=== PATIENT | male | born 1995 | race Caucasian/White ===

== ENCOUNTER 2019-12-15 15:35 | Outpatient (CLI) | payer OTHER ==
--- NOTE | 2019-12-15 16:11 | ULT ---
EXAM: BILATERAL RENAL ULTRASOUND COMPLETE: 12/15/19 HISTORY: Acute kidney failure. FINDINGS: Right kidney measures 10.6 x 5.1 x 4.7 cm. Left kidney measures 11.1 x 5.6 x 4.7 cm. No evidence for renal hydronephrosis. The urinary bladder appears unremarkable. No solid or cystic re nal mass. IMPRESSION: Unremarkable bilateral ultrasound. No renal hydronephrosis or other acute process. POS: RRE
== END 2019-12-15 15:36 | disposition home or self-care (01) ==
LOC: BICULT 15:35
PROVIDERS: ATTEND Internal Medicine Nephrology
DX: N17.9 Acute kidney failure, unspecified (principal)
CPT/HCPCS: 76770

== ENCOUNTER 2023-01-14 10:06 | Outpatient (CLI) | payer OTHER ==
[2023-01-14 11:15] LABS: Bilirubin Neg (Negative); Blood, Urine Negative (Negative); Clarity Clear (Clear); Glucose, Urine (Dipstick) Normal (Negative); Ketone, Urine Negative (Negative); Leukocyte Negative (Negative); Nitrite Negative (Negative); Protein, Urine (Dipstick) Negative (Neg-Trace); Urobilinogen Normal mg/dL (Less than 2); pH, Urine 6.5 (5.0-9.0)
[2023-01-14 11:23] LABS: Hematocrit 43.4 % (38.8-50.0); Hemoglobin 14.2 g/dL (13.5-17.5); Mean Corpuscular HGB CONC 32.7 g/dL (32.0-36.0); Mean Corpuscular Volume 88.6 fl (81.2-95.1); Mean Platelet Volume 10.8 fl (7.4-10.4); Platelet Count 220 10x3/uL (150-450); RBC Distribution Width 12.3 % (11.5-14.5); White Blood Cell (WBC) Count 6.1 10x3/uL (3.5-10.5)
[2023-01-14 11:27] LABS: INR-International Normal Ratio 0.9; PTT 26.9 sec (22.0-33.0); Prothrombin Time 10.2 sec (9.5-12.1)
[2023-01-14 11:29] LABS: Anion Gap 14 mmol/L (10-20); BUN (Urea Nitrogen) 10 mg/dL (8.9-20.6); Calc. Creatinine Clearance 0 mL/min (70-130); Calcium 9.8 mg/dL (7.8-10.44); Carbon Dioxide 27 mmol/L (22-29); Chloride 105 mmol/L (98-107); Estimated GFR 114; Glucose 81 mg/dL (70-105); Potassium 3.9 mmol/L (3.5-5.1); Sodium 142 mmol/L (136-145)
[2023-01-14 11:39] LABS: Bacteria/HPF None Seen HPF (None Seen); RBC/HPF None Seen HPF (0-3); Squamous Epithelial None Seen HPF (0-3); WBC/HPF None Seen HPF (0-3)
== END 2023-01-14 10:07 | disposition home or self-care (01) ==
LOC: LABBT 10:06
PROVIDERS: ATTEND Urology
DX: Z01.812 Encounter for preprocedural laboratory examination (principal); N50.89 Other specified disorders of the male genital organs
CPT/HCPCS: 80048; 81001; 85027; 85610; 85730; 87086

== ENCOUNTER 2023-01-16 08:45 | Outpatient (CLI) | payer OTHER | END 2023-01-16 08:46 | disposition home or self-care (01) | LOC: PET 08:45 | PROVIDERS: ATTEND Internal Medicine Hematology & Oncology | DX: C62.11 Malignant neoplasm of descended right testis (principal); C77.2 Secondary and unspecified malignant neoplasm of intra-abdominal lymph nodes; R93.89 Abnormal findings on diagnostic imaging of other specified body structures | CPT/HCPCS: 78815; A9552 ==

== ENCOUNTER 2023-01-24 09:30 | Day surgery (SDC) | payer OTHER ==
[2023-01-14 10:25] VITALS: BMI 25.1
[2023-01-24] MEDS ORDERED: fentaNYL 50 mcg/mL 1 mL Vial ONE ×2 (12:32→15:06)
[2023-01-24] MEDS ORDERED: SUGAMMADEX SODIUM 200 MG/2 ML VIAL ONE (12:32)
[2023-01-24] MEDS ORDERED: Bupivacaine 0.25% HCL 30 ML VIAL ONE (12:44)
[2023-01-24] MEDS ORDERED: Sodium Chloride 0.9% 100 ML ONE (12:56)
[2023-01-24] MEDS ORDERED: CEFAZOLIN 1 GM VIAL ONE (12:56)
[2023-01-24] MEDS ORDERED: Ondansetron PF 4 MG/2 ML Vial ONE (13:35)
[2023-01-24] MEDS ORDERED: Ketorolac Tromethamine 30 MG/ML VIAL ONE (13:35)
[2023-01-24] MEDS ORDERED: Lidocaine 1% PF 5 ML VIAL ONE (13:35)
[2023-01-24] MEDS ORDERED: PROPOFOL 200 MG/20 ML VIAL ONE (13:35)
[2023-01-24] MEDS ORDERED: HYDROcodone/Acetaminophen 5/325 mg Tablet ONE (15:34)
== END 2023-01-24 16:20 | disposition home or self-care (01) ==
LOC: SDC 09:30
PROVIDERS: ATTEND Urology
PROC: 0VB90ZZ Excision of Right Testis, Open Approach (ICD-10-PCS; principal; 2023-01-24)
DX: C62.91 Malignant neoplasm of right testis, unspecified whether descended or undescended (principal)
CPT/HCPCS: 88309; 88341; 88342; J0690; J1885; J2405; J2704; J3010; J3490; S0020

== ENCOUNTER 2023-03-01 11:37 | Day surgery (SDC) | payer OTHER ==
[2023-02-28 14:49] VITALS: BMI 24.3
[2023-03-01] MEDS ORDERED: Bupivacaine 0.25% HCL 30 ML VIAL ONE ×2 (12:29→12:52)
[2023-03-01] MEDS ORDERED: EPINEPHrine 1 MG/ML AMP ONE (12:29)
[2023-03-01] MEDS ORDERED: Lidocaine 2% PF 5 ML VIAL ONE (12:29)
[2023-03-01] MEDS ORDERED: Midazolam HCl 2 mg/2 ml Vial ONE (12:54)
[2023-03-01] MEDS ORDERED: fentaNYL 50 mcg/mL 1 mL Vial ONE (12:54)
[2023-03-01] MEDS ORDERED: Famotidine/PF 20 mg/2ml Vial ONE (12:54)
[2023-03-01] MEDS ORDERED: CEFAZOLIN 2 GM VIAL ONE (13:11)
[2023-03-01] MEDS ORDERED: Sodium Chloride 0.9% 100 ML ONE (13:11)
[2023-03-01] MEDS ORDERED: Ondansetron PF 4 MG/2 ML Vial ONE (13:20)
[2023-03-01] MEDS ORDERED: PROPOFOL 200 MG/20 ML VIAL ONE (13:20)
[2023-03-01] MEDS ORDERED: Lidocaine 1% PF 5 ML VIAL ONE (13:20)
== END 2023-03-01 14:46 | disposition home or self-care (01) ==
LOC: SDC 11:37
PROVIDERS: ATTEND Surgery
PROC: 0JH63WZ Insertion of Totally Implantable Vascular Access Device into Chest Subcutaneous Tissue and Fascia, Percutaneous Approach (ICD-10-PCS; principal; 2023-03-01)
DX: C62.11 Malignant neoplasm of descended right testis (principal)
CPT/HCPCS: 71045; C1788; J0171; J1642; J2001; J2250; J2405; J2704; J3010; J3490; S0020; S0028

== ENCOUNTER 2023-03-18 15:35 | Outpatient (CLI) | payer OTHER | END 2023-03-18 15:36 | disposition home or self-care (01) | LOC: BICRAD 15:35 | PROVIDERS: ATTEND Internal Medicine Hematology & Oncology | DX: C62.11 Malignant neoplasm of descended right testis (principal) | CPT/HCPCS: 71046 ==

== ENCOUNTER 2023-06-12 09:04 | Outpatient (CLI) | payer OTHER ==
[2023-06-12] MEDS ORDERED: Iopamidol-370 76% 500 ML MDV (1 ML CHARGE) ONE (13:23)
== END 2023-06-12 09:05 | disposition home or self-care (01) ==
LOC: BICCT 09:04
PROVIDERS: ATTEND Internal Medicine Hematology & Oncology
DX: C62.11 Malignant neoplasm of descended right testis (principal); C77.2 Secondary and unspecified malignant neoplasm of intra-abdominal lymph nodes; N32.89 Other specified disorders of bladder
CPT/HCPCS: 71046; 74177; Q9967

== ENCOUNTER 2023-10-02 08:34 | Outpatient (CLI) | payer OTHER ==
[2023-10-02] MEDS ORDERED: Iopamidol 370 76% 100 ML VIAL ONE (09:52)
== END 2023-10-02 08:35 | disposition home or self-care (01) ==
LOC: BICCT 08:34
PROVIDERS: ATTEND Internal Medicine Hematology & Oncology
DX: C62.90 Malignant neoplasm of unspecified testis, unspecified whether descended or undescended (principal); R91.8 Other nonspecific abnormal finding of lung field
CPT/HCPCS: 74177; Q9967

== ENCOUNTER 2023-10-25 11:21 | Outpatient (CLI) | payer OTHER ==
[2023-10-25] MEDS ORDERED: Iopamidol 370 76% 100 ML VIAL ONE (12:37)
== END 2023-10-25 11:22 | disposition home or self-care (01) ==
LOC: BICCT 11:21
PROVIDERS: ATTEND Internal Medicine Hematology & Oncology
DX: R91.1 Solitary pulmonary nodule (principal); C62.90 Malignant neoplasm of unspecified testis, unspecified whether descended or undescended
CPT/HCPCS: 71260; Q9967

== ENCOUNTER 2024-06-19 13:45 | Outpatient (CLI) | payer OTHER ==
[~2024-06-19 13:45] MED LIST: Iopamidol 370 76% 100 ML VIAL ONE
== END 2024-06-19 13:46 | disposition home or self-care (01) ==
LOC: BICCT 13:45
PROVIDERS: ATTEND Internal Medicine Hematology & Oncology
DX: C62.91 Malignant neoplasm of right testis, unspecified whether descended or undescended (principal)
CPT/HCPCS: 71046; 74177; Q9967

== ENCOUNTER 2024-12-23 12:24 | Outpatient (CLI) | payer OTHER | END 2024-12-23 12:25 | disposition home or self-care (01) | LOC: CT 12:24 | PROVIDERS: ATTEND Internal Medicine Hematology & Oncology | DX: Z45.2 Encounter for adjustment and management of vascular access device (principal); C62.11 Malignant neoplasm of descended right testis; D70.8 Other neutropenia; R59.0 Localized enlarged lymph nodes | CPT/HCPCS: 74177; Q9967 ==